=== PATIENT | male | born 2000 | race Caucasian/White ===

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

== ENCOUNTER 2019-09-13 11:10 | Outpatient (CLI) | payer OTHER ==
--- NOTE | 2019-09-13 12:28 | RAD ---
TWO VIEWS OF THE CHEST: HISTORY: Left upper chest pain for a few days. FINDINGS: Two views of the chest show normal sized cardiomediastinal silhouette. There is no evidence of consol idation, mass, or pleural effusion. The bones are unremarkable. IMPRESSION: No evidence of acute cardiopulmonary disease. POS: TPC
== END 2019-09-13 11:11 | disposition home or self-care (01) ==
LOC: SCSRAD 11:10
PROVIDERS: ATTEND Nurse Practitioner Family
DX: R07.89 Other chest pain (principal)
CPT/HCPCS: 71046

== ENCOUNTER 2022-08-03 13:06 | Emergency (ER) | payer BC, OTHER | END 2022-08-03 13:42 | disposition home or self-care (01) | LOC: ERS 13:06 | DX: H66.91 Otitis media, unspecified, right ear (principal) | CPT/HCPCS: 99282 ==